=== PATIENT | male | born 1970 | race Caucasian/White ===

== ENCOUNTER 2019-02-12 11:16 | Inpatient (IN) | payer MEDICAID ==
[2019-02-12 12:12] LABS: ADD MAN DIFF? NO
[2019-02-12 12:18] LABS: WHITE BLOOD COUNT 7.5 10^3/ul (4.8-10.8)
[2019-02-12 12:18] LABS: BASOPHIL # 0.1 10^3/ul (0.0-0.1); BASOPHILS % 0.8 % (0.0-2.0); EOSINOPHILS # 0.1 10^3/ul (0.0-0.5); EOSINOPHILS % 1.9 % (0.0-7.0); HEMATOCRIT 40.7 % (42.0-52.0); LYMPHOCYTES # 1.7 10^3/ul (0.8-2.9); MEAN CORPUSCULAR HEMOGLOBIN 30.8 pg (29.0-33.0); MEAN CORPUSCULAR HGB CONC 34.4 g/dl (32.0-37.0); MEAN CORPUSCULAR VOLUME 89.6 fl (82.0-101.0); MEAN PLATELET VOLUME 9.6 fl (7.4-10.4); MONOCYTE # 0.7 10^3/ul (0.3-0.9); MONOCYTES % 9.2 % (0.0-11.0); NEUTROPHIL # 4.9 10^3/ul (1.6-7.5); NEUTROPHILS % 65.7 % (39.0-77.0); PLATELET COUNT 261 10^3/UL (140-415); RED BLOOD COUNT 4.54 10^6/ul (4.70-6.10); RED CELL DISTRIBUTION WIDTH 11.2 % (11.5-14.5)
[2019-02-12 12:39] LABS: ALANINE AMINOTRANSFERASE 9 IU/L (13-69); ALBUMIN 3.5 g/dl (3.3-4.9); ALBUMIN/GLOBULIN RATIO 1.09; ALKALINE PHOSPHATASE 137 IU/L (42-121); ANION GAP 10 (5-13); ASPARTATE AMINO TRANSFERASE 15 IU/L (15-46); BILIRUBIN,INDIRECT 0.4 mg/dl (0-1.1); BILIRUBIN,TOTAL 0.4 mg/dl (0.2-1.3); BLOOD UREA NITROGEN 30 mg/dl (7-20); CALCIUM 8.8 mg/dl (8.4-10.2); CARBON DIOXIDE 21 mmol/L (21-31); CHLORIDE 100 mmol/L (97-110); CREATININE 0.66 mg/dl (0.61-1.24); Estimated GFR > 60 mL/min (>60); LIPASE 48 U/L (23-300); POTASSIUM 4.7 mmol/L (3.5-5.1); SODIUM 131 mmol/L (135-144); TOTAL PROTEIN 6.7 g/dl (6.1-8.1)
[2019-02-12 12:40] LABS: GLUCOSE 453 mg/dl (70-220)
[2019-02-12] MEDS: SODIUM CHLORIDE 0.9% 1L BAG IV* (12:50)
[2019-02-12] MEDS: PIPER-TAZO 3.375 GM IV (PMX) 100 ML IVPB ×2 (12:51→18:54)
[2019-02-12 12:58] LABS: C-REACTIVE PROTEIN 2.1 mg/dl (0.0-0.9)
[2019-02-12 13:09] LABS: ADD UMIC YES; UR ASCORBIC ACID NEGATIVE (NEGATIVE); UR BILIRUBIN (Dip) NEGATIVE (NEGATIVE); UR BLOOD (Dip) 1+ mg/dL (NEGATIVE); UR CLARITY SLIGHTLY CLOUDY (CLEAR); UR COLOR YELLOW (YELLOW); UR GLUCOSE (Dip) 3+ mg/dL (NEGATIVE); UR KETONES (Dip) NEGATIVE (NEGATIVE); UR LEUKOCYTE ESTERASE (Dip) 3+ Leu/ul (NEGATIVE); UR NITRITE (Dip) NEGATIVE (NEGATIVE); UR RBC 4 /HPF (0-5); UR SPECIFIC GRAVITY (Dip) 1.022 (1.003-1.030); UR SQUAMOUS EPITHELIAL CELL FEW /HPF (FEW); UR TOTAL PROTEIN (Dip) NEGATIVE (NEGATIVE); UR UROBILINOGEN (Dip) NEGATIVE (NEGATIVE); UR WBC 7 /HPF (0-5)
[2019-02-12 13:16] LABS: ERYTHROCYTE SEDIMENTATION RATE 28 mm/Hr (0-15)
[2019-02-12] MEDS: VANCOMYCIN 1 GM (PMX) 250 ML IVPB (13:29)
[2019-02-12] MEDS: INSULIN LISPRO 100 UNIT/ML VIAL SC (13:30)
[2019-02-12 13:46] LABS: LACTIC ACID 1.6 mmol/L (0.5-2.0)
[2019-02-12] MEDS ORDERED: ACETAMINOPHEN 325 MG TAB PO ×2 (14:00→15:00)
[2019-02-12] MEDS ORDERED: ONDANSETRON 4 MG INJ IV ×2 (14:00→15:00)
[2019-02-12] MEDS ORDERED: NACL 0.9% 3 ML SYG IV (15:00)
[2019-02-12] MEDS ORDERED: VANCOMYCIN IV PER PHARMACY XX (15:30)
[2019-02-12] MEDS ORDERED: GLUCOSE GEL 15 GRAM TUBE PO ×2 (16:00)
[2019-02-12] MEDS ORDERED: GLUCOSE GEL 15 GRAM TUBE BUCCAL (16:00)
[2019-02-12] MEDS ORDERED: DEXTROSE 50% 50 ML SYRINGE IV ×2 (16:00)
[2019-02-12] MEDS ORDERED: GLUCAGON 1 MG INJ IM (16:00)
[2019-02-12 17:17] LABS: LACTIC ACID 1.5 mmol/L (0.5-2.0)
[2019-02-12] MEDS: INSULIN ASPART [NOVOLOG] 3 ML PEN SC ×2 (18:00→22:15)
[2019-02-12] MEDS: GUAIFENESIN 20 MG/ML 5ML CUP PO (18:54)
[2019-02-12 19:55] LABS: LACTIC ACID 1.5 mmol/L (0.5-2.0)
[2019-02-12] MEDS: VANCOMYCIN 1 GM 250 ML IVPB (22:06)
[2019-02-12] MEDS: HEPARIN 5,000 UNIT/1 ML VIAL SC (22:13)
[2019-02-12] MEDS: INSULIN GLARGINE [LANTus] (100 UNITS/ML) SYG SC (22:14)
[2019-02-13] MEDS: PIPER-TAZO 3.375 GM IV (PMX) 100 ML IVPB ×5 (00:26→23:42)
[2019-02-13] MEDS: ACCU-CHEK XX (01:53)
[2019-02-13 05:28] LABS: ADD MAN DIFF? NO
[2019-02-13 05:37] LABS: WHITE BLOOD COUNT 7.6 10^3/ul (4.8-10.8)
[2019-02-13 05:37] LABS: BASOPHIL # 0.1 10^3/ul (0.0-0.1); EOSINOPHILS # 0.2 10^3/ul (0.0-0.5); EOSINOPHILS % 2.2 % (0.0-7.0); HEMATOCRIT 40.1 % (42.0-52.0); HEMOGLOBIN 13.7 g/dl (14.0-18.0); LYMPHOCYTES # 2.5 10^3/ul (0.8-2.9); LYMPHOCYTES % 32.3 % (15.0-51.0); MEAN CORPUSCULAR HEMOGLOBIN 30.7 pg (29.0-33.0); MEAN CORPUSCULAR HGB CONC 34.2 g/dl (32.0-37.0); MEAN CORPUSCULAR VOLUME 89.9 fl (82.0-101.0); MEAN PLATELET VOLUME 9.6 fl (7.4-10.4); MONOCYTE # 0.8 10^3/ul (0.3-0.9); MONOCYTES % 10.6 % (0.0-11.0); NEUTROPHIL # 4.1 10^3/ul (1.6-7.5); NEUTROPHILS % 53.6 % (39.0-77.0); PLATELET COUNT 266 10^3/UL (140-415); RED BLOOD COUNT 4.46 10^6/ul (4.70-6.10); RED CELL DISTRIBUTION WIDTH 11.4 % (11.5-14.5)
[2019-02-13 05:51] LABS: HEMOGLOBIN A1C 12.8 % (0-5.9)
[2019-02-13 06:11] LABS: ALANINE AMINOTRANSFERASE 12 IU/L (13-69); ALBUMIN 3.3 g/dl (3.3-4.9); ALKALINE PHOSPHATASE 101 IU/L (42-121); ANION GAP 8 (5-13); ASPARTATE AMINO TRANSFERASE 13 IU/L (15-46); BILIRUBIN,INDIRECT 0.4 mg/dl (0-1.1); BILIRUBIN,TOTAL 0.4 mg/dl (0.2-1.3); BLOOD UREA NITROGEN 20 mg/dl (7-20); CALCIUM 8.8 mg/dl (8.4-10.2); CARBON DIOXIDE 26 mmol/L (21-31); CHLORIDE 105 mmol/L (97-110); CHOL/HDL RATIO 4.2 RATIO; CHOLESTEROL 139 mg/dl (100-200); CREATININE 0.76 mg/dl (0.61-1.24); Estimated GFR > 60 mL/min (>60); GLUCOSE 114 mg/dl (70-220); HDL CHOLESTEROL 33 mg/dl (28-71); LDL CHOLESTEROL,CALCULATED 72 mg/dl; MAGNESIUM 1.9 mg/dl (1.7-2.5); PHOSPHORUS 3.9 mg/dl (2.5-4.9); POTASSIUM 4.1 mmol/L (3.5-5.1); SODIUM 139 mmol/L (135-144); TOTAL PROTEIN 6.6 g/dl (6.1-8.1); TRIGLYCERIDES 169 mg/dl (0-149)
[2019-02-13] MEDS: VANCOMYCIN 1 GM 250 ML IVPB ×3 (06:20→21:24)
[2019-02-13] MEDS: HEPARIN 5,000 UNIT/1 ML VIAL SC ×3 (06:22→21:18)
[2019-02-13] MEDS: INSULIN ASPART [NOVOLOG] 3 ML PEN SC ×4 (08:00→21:18)
[2019-02-13 09:47] LABS: C-REACTIVE PROTEIN 2.8 mg/dl (0.0-0.9)
[2019-02-13 10:38] LABS: ERYTHROCYTE SEDIMENTATION RATE 35 mm/Hr (0-15)
[2019-02-13] MEDS: DAKINS 0.0125%(1/40) 473 ML SOLUTION TP (13:24)
[2019-02-13] MEDS: COLLAGENASE 5 GM (UD JAR) TOP (13:24)
[2019-02-13] MEDS: FLUCONAZOLE 200 MG TAB PO (13:48)
[2019-02-13 21:03] LABS: VANCOMYCIN,TROUGH 13.4 ug/ml (10.0-20.0)
[2019-02-13] MEDS: INSULIN GLARGINE [LANTus] (100 UNITS/ML) SYG SC (21:18)
[2019-02-14] MEDS: ACCU-CHEK XX (02:00)
[2019-02-14] MEDS: PIPER-TAZO 3.375 GM IV (PMX) 100 ML IVPB ×2 (05:17→12:12)
[2019-02-14] MEDS: HEPARIN 5,000 UNIT/1 ML VIAL SC ×3 (05:26→22:29)
[2019-02-14 05:32] LABS: ADD MAN DIFF? NO
[2019-02-14 05:35] LABS: BASOPHIL # 0.1 10^3/ul (0.0-0.1); BASOPHILS % 1.3 % (0.0-2.0); EOSINOPHILS # 0.2 10^3/ul (0.0-0.5); EOSINOPHILS % 2.8 % (0.0-7.0); HEMATOCRIT 41.6 % (42.0-52.0); LYMPHOCYTES # 2.2 10^3/ul (0.8-2.9); LYMPHOCYTES % 41.9 % (15.0-51.0); MEAN CORPUSCULAR HEMOGLOBIN 30.4 pg (29.0-33.0); MEAN CORPUSCULAR HGB CONC 33.7 g/dl (32.0-37.0); MEAN CORPUSCULAR VOLUME 90.4 fl (82.0-101.0); MEAN PLATELET VOLUME 9.6 fl (7.4-10.4); MONOCYTE # 0.6 10^3/ul (0.3-0.9); NEUTROPHIL # 2.3 10^3/ul (1.6-7.5); NEUTROPHILS % 42.8 % (39.0-77.0); PLATELET COUNT 268 10^3/UL (140-415); RED CELL DISTRIBUTION WIDTH 11.2 % (11.5-14.5)
[2019-02-14 05:35] LABS: WHITE BLOOD COUNT 5.4 10^3/ul (4.8-10.8)
[2019-02-14] MEDS: VANCOMYCIN 1 GM 250 ML IVPB ×3 (06:09→22:20)
[2019-02-14 06:17] LABS: ANION GAP 8 (5-13); BLOOD UREA NITROGEN 14 mg/dl (7-20); CARBON DIOXIDE 26 mmol/L (21-31); CHLORIDE 104 mmol/L (97-110); CREATININE 0.82 mg/dl (0.61-1.24); Estimated GFR > 60 mL/min (>60); GLUCOSE 194 mg/dl (70-220); MAGNESIUM 1.9 mg/dl (1.7-2.5); PHOSPHORUS 4.1 mg/dl (2.5-4.9); SODIUM 138 mmol/L (135-144)
[2019-02-14] MEDS: FLUCONAZOLE 200 MG TAB PO (08:36)
[2019-02-14] MEDS: COLLAGENASE 5 GM (UD JAR) TOP (08:44)
[2019-02-14] MEDS: INSULIN ASPART [NOVOLOG] 3 ML PEN SC ×5 (08:44→21:00)
[2019-02-14] MEDS: DAKINS 0.0125%(1/40) 473 ML SOLUTION TP (08:44)
[2019-02-14] MEDS: INSULIN GLARGINE [LANTus] (100 UNITS/ML) SYG SC (21:06)
[2019-02-15] MEDS: ACCU-CHEK XX (02:00)
[2019-02-15 05:48] LABS: ADD MAN DIFF? NO
[2019-02-15 05:53] LABS: BASOPHIL # 0.1 10^3/ul (0.0-0.1); BASOPHILS % 1.1 % (0.0-2.0); EOSINOPHILS # 0.3 10^3/ul (0.0-0.5); EOSINOPHILS % 4.7 % (0.0-7.0); HEMATOCRIT 42.5 % (42.0-52.0); HEMOGLOBIN 14.4 g/dl (14.0-18.0); LYMPHOCYTES # 2.3 10^3/ul (0.8-2.9); LYMPHOCYTES % 41.5 % (15.0-51.0); MEAN CORPUSCULAR HGB CONC 33.9 g/dl (32.0-37.0); MEAN CORPUSCULAR VOLUME 91.4 fl (82.0-101.0); MEAN PLATELET VOLUME 9.6 fl (7.4-10.4); MONOCYTE # 0.7 10^3/ul (0.3-0.9); MONOCYTES % 12.1 % (0.0-11.0); NEUTROPHIL # 2.2 10^3/ul (1.6-7.5); NEUTROPHILS % 40.2 % (39.0-77.0); PLATELET COUNT 285 10^3/UL (140-415); RED BLOOD COUNT 4.65 10^6/ul (4.70-6.10); RED CELL DISTRIBUTION WIDTH 11.5 % (11.5-14.5)
[2019-02-15 05:53] LABS: WHITE BLOOD COUNT 5.5 10^3/ul (4.8-10.8)
[2019-02-15] MEDS: VANCOMYCIN 1 GM 250 ML IVPB (06:12)
[2019-02-15] MEDS: HEPARIN 5,000 UNIT/1 ML VIAL SC ×3 (06:17→21:58)
[2019-02-15 06:30] LABS: ANION GAP 8 (5-13); BLOOD UREA NITROGEN 13 mg/dl (7-20); CALCIUM 9.5 mg/dl (8.4-10.2); CARBON DIOXIDE 29 mmol/L (21-31); CHLORIDE 104 mmol/L (97-110); CREATININE 0.82 mg/dl (0.61-1.24); Estimated GFR > 60 mL/min (>60); GLUCOSE 139 mg/dl (70-220); POTASSIUM 4.3 mmol/L (3.5-5.1); SODIUM 141 mmol/L (135-144)
[2019-02-15] MEDS: FLUCONAZOLE 200 MG TAB PO (08:21)
[2019-02-15] MEDS: COLLAGENASE 5 GM (UD JAR) TOP (08:21)
[2019-02-15] MEDS: INSULIN ASPART [NOVOLOG] 3 ML PEN SC ×7 (08:23→21:00)
[2019-02-15] MEDS: DAKINS 0.0125%(1/40) 473 ML SOLUTION TP (10:09)
[2019-02-15] MEDS: CEFTRIAXONE 1 GM/50 ML (PMX) 50 ML IVPB (12:58)
[2019-02-15] MEDS: INSULIN GLARGINE [LANTus] (100 UNITS/ML) SYG SC (21:58)
[2019-02-16] MEDS: ACCU-CHEK XX (02:00)
[2019-02-16 05:35] LABS: ADD MAN DIFF? NO
[2019-02-16 05:38] LABS: WHITE BLOOD COUNT 5.9 10^3/ul (4.8-10.8)
[2019-02-16 05:38] LABS: BASOPHIL # 0.1 10^3/ul (0.0-0.1); BASOPHILS % 1.2 % (0.0-2.0); EOSINOPHILS # 0.3 10^3/ul (0.0-0.5); EOSINOPHILS % 5.6 % (0.0-7.0); HEMATOCRIT 43.9 % (42.0-52.0); LYMPHOCYTES # 2.2 10^3/ul (0.8-2.9); LYMPHOCYTES % 37.5 % (15.0-51.0); MEAN CORPUSCULAR HEMOGLOBIN 31.2 pg (29.0-33.0); MEAN CORPUSCULAR HGB CONC 34.2 g/dl (32.0-37.0); MEAN CORPUSCULAR VOLUME 91.3 fl (82.0-101.0); MEAN PLATELET VOLUME 9.3 fl (7.4-10.4); MONOCYTE # 0.7 10^3/ul (0.3-0.9); MONOCYTES % 11.4 % (0.0-11.0); NEUTROPHIL # 2.6 10^3/ul (1.6-7.5); NEUTROPHILS % 44.1 % (39.0-77.0); PLATELET COUNT 278 10^3/UL (140-415); RED BLOOD COUNT 4.81 10^6/ul (4.70-6.10); RED CELL DISTRIBUTION WIDTH 11.5 % (11.5-14.5)
[2019-02-16 06:20] LABS: ANION GAP 8 (5-13); BLOOD UREA NITROGEN 14 mg/dl (7-20); CALCIUM 9.4 mg/dl (8.4-10.2); CARBON DIOXIDE 29 mmol/L (21-31); CHLORIDE 104 mmol/L (97-110); CREATININE 0.87 mg/dl (0.61-1.24); Estimated GFR > 60 mL/min (>60); GLUCOSE 163 mg/dl (70-220); POTASSIUM 4.2 mmol/L (3.5-5.1); SODIUM 141 mmol/L (135-144)
[2019-02-16] MEDS: HEPARIN 5,000 UNIT/1 ML VIAL SC ×3 (06:31→22:13)
[2019-02-16] MEDS: INSULIN ASPART [NOVOLOG] 3 ML PEN SC ×6 (07:44→21:17)
[2019-02-16] MEDS: DAKINS 0.0125%(1/40) 473 ML SOLUTION TP (08:04)
[2019-02-16] MEDS: COLLAGENASE 5 GM (UD JAR) TOP (08:04)
[2019-02-16] MEDS: FLUCONAZOLE 200 MG TAB PO (08:04)
[2019-02-16] MEDS: CEFTRIAXONE 1 GM/50 ML (PMX) 50 ML IVPB (12:09)
[2019-02-16] MEDS: metFORMIN 850 MG TAB PO (17:50)
[2019-02-17] MEDS: ACCU-CHEK XX (02:45)
[2019-02-17 05:09] LABS: ADD MAN DIFF? NO
[2019-02-17 05:13] LABS: BASOPHIL # 0.1 10^3/ul (0.0-0.1); BASOPHILS % 1.1 % (0.0-2.0); EOSINOPHILS # 0.3 10^3/ul (0.0-0.5); EOSINOPHILS % 4.7 % (0.0-7.0); HEMATOCRIT 43.2 % (42.0-52.0); HEMOGLOBIN 14.2 g/dl (14.0-18.0); LYMPHOCYTES # 2.7 10^3/ul (0.8-2.9); LYMPHOCYTES % 41.7 % (15.0-51.0); MEAN CORPUSCULAR HEMOGLOBIN 30.1 pg (29.0-33.0); MEAN CORPUSCULAR HGB CONC 32.9 g/dl (32.0-37.0); MEAN CORPUSCULAR VOLUME 91.5 fl (82.0-101.0); MEAN PLATELET VOLUME 9.1 fl (7.4-10.4); MONOCYTE # 0.8 10^3/ul (0.3-0.9); MONOCYTES % 11.8 % (0.0-11.0); NEUTROPHIL # 2.6 10^3/ul (1.6-7.5); NEUTROPHILS % 40.2 % (39.0-77.0); PLATELET COUNT 283 10^3/UL (140-415); RED BLOOD COUNT 4.72 10^6/ul (4.70-6.10); RED CELL DISTRIBUTION WIDTH 11.4 % (11.5-14.5)
[2019-02-17 05:13] LABS: WHITE BLOOD COUNT 6.4 10^3/ul (4.8-10.8)
[2019-02-17 05:36] LABS: ANION GAP 9 (5-13); BLOOD UREA NITROGEN 18 mg/dl (7-20); CALCIUM 9.1 mg/dl (8.4-10.2); CARBON DIOXIDE 29 mmol/L (21-31); CHLORIDE 101 mmol/L (97-110); CREATININE 0.84 mg/dl (0.61-1.24); Estimated GFR > 60 mL/min (>60); GLUCOSE 176 mg/dl (70-220); POTASSIUM 4.1 mmol/L (3.5-5.1); SODIUM 139 mmol/L (135-144)
[2019-02-17] MEDS: HEPARIN 5,000 UNIT/1 ML VIAL SC ×3 (06:17→22:05)
[2019-02-17] MEDS: FLUCONAZOLE 200 MG TAB PO (08:25)
[2019-02-17] MEDS: COLLAGENASE 5 GM (UD JAR) TOP (08:25)
[2019-02-17] MEDS: metFORMIN 850 MG TAB PO ×2 (08:25→17:36)
[2019-02-17] MEDS: DAKINS 0.0125%(1/40) 473 ML SOLUTION TP (08:25)
[2019-02-17] MEDS: INSULIN ASPART [NOVOLOG] 3 ML PEN SC ×4 (08:30→21:07)
[2019-02-17] MEDS: CEFTRIAXONE 1 GM/50 ML (PMX) 50 ML IVPB (12:52)
[2019-02-18] MEDS: ACCU-CHEK XX (02:00)
[2019-02-18] MEDS: HEPARIN 5,000 UNIT/1 ML VIAL SC ×3 (06:14→21:40)
[2019-02-18 06:24] LABS: ADD MAN DIFF? NO
[2019-02-18 06:35] LABS: BASOPHIL # 0.1 10^3/ul (0.0-0.1); BASOPHILS % 1.2 % (0.0-2.0); EOSINOPHILS # 0.4 10^3/ul (0.0-0.5); EOSINOPHILS % 6.3 % (0.0-7.0); HEMATOCRIT 43.1 % (42.0-52.0); HEMOGLOBIN 14.4 g/dl (14.0-18.0); LYMPHOCYTES # 2.1 10^3/ul (0.8-2.9); LYMPHOCYTES % 36.7 % (15.0-51.0); MEAN CORPUSCULAR HEMOGLOBIN 30.8 pg (29.0-33.0); MEAN CORPUSCULAR HGB CONC 33.4 g/dl (32.0-37.0); MEAN CORPUSCULAR VOLUME 92.1 fl (82.0-101.0); MEAN PLATELET VOLUME 9.2 fl (7.4-10.4); MONOCYTE # 0.6 10^3/ul (0.3-0.9); MONOCYTES % 10.1 % (0.0-11.0); NEUTROPHIL # 2.6 10^3/ul (1.6-7.5); NEUTROPHILS % 45.4 % (39.0-77.0); PLATELET COUNT 275 10^3/UL (140-415); RED BLOOD COUNT 4.68 10^6/ul (4.70-6.10); RED CELL DISTRIBUTION WIDTH 11.5 % (11.5-14.5)
[2019-02-18 06:35] LABS: WHITE BLOOD COUNT 5.8 10^3/ul (4.8-10.8)
[2019-02-18 07:24] LABS: ANION GAP 7 (5-13); BLOOD UREA NITROGEN 19 mg/dl (7-20); CALCIUM 9.3 mg/dl (8.4-10.2); CARBON DIOXIDE 28 mmol/L (21-31); CHLORIDE 104 mmol/L (97-110); CREATININE 0.89 mg/dl (0.61-1.24); Estimated GFR > 60 mL/min (>60); GLUCOSE 204 mg/dl (70-220); POTASSIUM 4.1 mmol/L (3.5-5.1); SODIUM 139 mmol/L (135-144)
[2019-02-18] MEDS: metFORMIN 850 MG TAB PO ×2 (08:17→17:47)
[2019-02-18] MEDS: FLUCONAZOLE 200 MG TAB PO (08:17)
[2019-02-18] MEDS: INSULIN ASPART [NOVOLOG] 3 ML PEN SC ×4 (08:19→21:39)
[2019-02-18] MEDS: COLLAGENASE 5 GM (UD JAR) TOP (08:21)
[2019-02-18] MEDS: CEFTRIAXONE 1 GM/50 ML (PMX) 50 ML IVPB (12:51)
[2019-02-18] MEDS: DAKINS 0.0125%(1/40) 473 ML SOLUTION TP (12:51)
[2019-02-19] MEDS: ACCU-CHEK XX (02:10)
[2019-02-19] MEDS: HEPARIN 5,000 UNIT/1 ML VIAL SC ×3 (06:36→21:23)
[2019-02-19] MEDS: metFORMIN 850 MG TAB PO ×2 (08:14→17:45)
[2019-02-19] MEDS: COLLAGENASE 5 GM (UD JAR) TOP (08:16)
[2019-02-19] MEDS: INSULIN ASPART [NOVOLOG] 3 ML PEN SC ×4 (08:16→21:17)
[2019-02-19] MEDS: DAKINS 0.0125%(1/40) 473 ML SOLUTION TP (08:17)
[2019-02-19] MEDS: CEFTRIAXONE 1 GM/50 ML (PMX) 50 ML IVPB (12:13)
[2019-02-19] MEDS: LIDOCAINE 1% (MPF) 5 ML VIAL SC (16:45)
[2019-02-20] MEDS: ACCU-CHEK XX (02:00)
[2019-02-20] MEDS: HEPARIN 5,000 UNIT/1 ML VIAL SC ×2 (05:49→17:49)
[2019-02-20] MEDS: INSULIN ASPART [NOVOLOG] 3 ML PEN SC ×3 (08:29→17:49)
[2019-02-20] MEDS: DAKINS 0.0125%(1/40) 473 ML SOLUTION TP (08:30)
[2019-02-20] MEDS: COLLAGENASE 5 GM (UD JAR) TOP (08:30)
[2019-02-20] MEDS: metFORMIN 850 MG TAB PO ×2 (08:35→17:44)
[2019-02-20] MEDS: CEFTRIAXONE 1 GM/50 ML (PMX) 50 ML IVPB (12:50)
== END 2019-02-20 19:15 | disposition home health service (06) | DRG 623 ==
LOC: FTE 11:16 → 2NE 13:47
PROC: 0JBR0ZZ Excision of Left Foot Subcutaneous Tissue and Fascia, Open Approach (ICD-10-PCS; principal; 2019-02-12)
PROC: 0JBQ0ZZ Excision of Right Foot Subcutaneous Tissue and Fascia, Open Approach (ICD-10-PCS; 2019-02-12)
DX: E11.621 Type 2 diabetes mellitus with foot ulcer (principal); L03.116 Cellulitis of left lower limb; M86.8X7 Other osteomyelitis, ankle and foot; B37.49 Other urogenital candidiasis; E11.42 Type 2 diabetes mellitus with diabetic polyneuropathy; E11.65 Type 2 diabetes mellitus with hyperglycemia; E11.69 Type 2 diabetes mellitus with other specified complication; R82.71 Bacteriuria; L97.529 Non-pressure chronic ulcer of other part of left foot with unspecified severity; L97.519 Non-pressure chronic ulcer of other part of right foot with unspecified severity; Z79.4 Long term (current) use of insulin
CPT/HCPCS: 36569; 71045; 73630; 73630-LT; 73718; 76937; 80048; 80053; 80061; 80202; 81001; 82962; 83036; 83605; 83690; 83735; 84100; 84443; 85025; 85651; 86140; 87040-91; 87070; 87086; 93922; 96372; 96374; 96375; 99285-25

== ENCOUNTER 2019-04-23 10:40 | Emergency (ER) | payer OTHER, MEDICAID | END 2019-04-23 11:53 | disposition home or self-care (01) | LOC: FTE 11:53 | DX: L03.211 Cellulitis of face (principal); Z79.84 Long term (current) use of oral hypoglycemic drugs | CPT/HCPCS: 99283; Z7502 ==